=== PATIENT | female | born 2000 | race Caucasian/White ===

== ENCOUNTER 2024-04-12 21:27 | Emergency (ER) | payer MEDICAID, SELFPAY ==
[2024-04-12 21:31] VITALS: BP 150/100; PULSE 135; TEMP 36.4; O2SAT 99; BMI 26.6
[2024-04-12] MEDS: ONDANSETRON 4 MG RAPDIS TABLET SL (22:12)
[2024-04-12] MEDS: ACETAMINOPHEN 325 MG TABLET 650 MG PO (22:12)
[2024-04-12] MEDS: CEPHALEXIN 500 MG CAPSULE PO (22:12)
[2024-04-12 22:21] LABS: Influenza Virus A Antigen Negative; Influenza Virus B Antigen Negative; Internal Control Within Normal Limits
[2024-04-12] MEDS: FAMOTIDINE 20 MG TABLET PO (22:27)
--- NOTE | 2024-04-12 23:04 | ED_ITS ---
HPI HPI - General Adult General Chief complaint: Dental/Oral Stated complaint: TOOTH INFECTION Time Seen by Provider: 04/12/24 21:34 Source: patient Mode of arrival: walk-in Limitations: no limitations History of Present Illness HPI narrative: 23-year-old female to the emergency department multiple complaints. She arrives with her stepdad who encouraged her to seek medical care tonight. Patient is currently , does not know how far along. : Unknown last menstrual period. No abdominal pain or vaginal bleeding. No care thus far. Rash: Dry skin on hands. Occasional cold feeling in her feet hands and by her knees. Heartburn: Occasional heartburn. No chest pain or shortness of breath. Toothache: Left posterior superior molar pain for several weeks. Cough: Occasional cough ongoing for the last week, body aches, malaise. Related Data Previous Rx's ?Medication ?Instructions ?Recorded cephalexin 500 mg capsule 500 mg PO BID 7 days #14 caps 04/12/24 vit no.95-ferrous 1 tab PO DAILY #30 tabs 04/12/24 fumarate 28 mg-folic acid 800 mcg tablet () Allergies Allergy/AdvReac Type Severity Reaction Status Date / Time Penicillins Allergy unknown Verified 04/12/24 21:42 Opioid HPI Opioid Management Most Recent Opioid Data: No Data to Display Review of Systems ROS Status of ROS 10 or more systems reviewed and unremark able except as noted in history and below PFSH PFSH Social History Little interest or pleasure in doing things: not at all Feeling down, depressed, or hopeless: not at all Exam Narrative Exam Narrative: VITALS: I have reviewed the triage vital signs. GENERAL: Unkempt adult female in no distress NEURO: Alert and oriented. Moves all extremities. Face is symmetric and expressive. EYES: PERRL. No scleral icterus or conjunctival injection. No discharge. HENT: Normocephalic, atraumatic. Hearing is grossly intact. Nares grossly patent and without discharge. Mucous membranes moist. NECK: No JVD. Patient moves neck without restriction. CARDIO: Rhythm regular. Normal rate. No murmur, rub, or gallop. Pulses equal bilaterally in the upper and lower extremity. No lower extremity edema. PULM: Lungs clear to auscultation in all ryan. No wheezes, rales, or rhonchi. No conversational dyspnea. No splinting, stridor, or accessory muscle use. GI/: Abdomen is soft and non-tender. Normoactive bowel sounds. Gravid uterus, 20cm fundal height. EXTREMITIES: Symmetric muscle bulk. No joint swelling. No clubbing, cyanosis, or deformity. SKIN: Warm and dry. Normal turgor. No rash or lesions appreciated. PSYCH: Bizarre affect Constitutional Vital Signs, click to edit/add: Last Vital Signs Temp 97.5 F L 04/12/24 21:31 Pulse 135 H 04/12/24 21:31 Resp 16 04/12/24 21:31 BP 150/100 H 04/12/24 21:31 Pulse Ox 99 04/12/24 21:31 O2 Del Method Room Air 04/12/24 21:31 Course Vital Signs Vital signs: Vital Signs Temperature 97.5 F L 04/12/24 21:31 Pulse Rate 135 H 04/12/24 21:31 Respiratory Rate 16 04/12/24 21:31 Blood Pressure 150/100 H 04/12/24 21:31 Pulse Oximetry 99 04/12/24 21:31 Oxygen Delivery Method Room Air 04/12/24 21:31 Temperature 97.5 F L 04/12/24 21:31 Pulse Rate 135 H 04/12/24 21:31 Respiratory Rate 16 04/12/24 21:31 Blood Pressure 150/100 H 04/12/24 21:31 Pulse Oximetry 99 04/12/24 21:31 Oxygen Delivery Method Room Air 04/12/24 21:31 Medical Decision Making [facility] Narrative Medical decision making narrative: Well-appearing 23-year-old female to the emergency department multiple complaints as above, most of chronic nature. Vital stable, the patient is afebrile. Influenza testing is ordered. Symptomatic medications. 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 It sounds as though this is chronic. She also has some dry skin about her hands and feet. No dangerous rash identified. Influenza testing is negative. Her dry cough and malaise are likely viral upper respiratory given her clear lungs. Heartburn is chronic in nature. Responded well to Pepcid/Zofran in the ER. She does have generally poor dentition. Will treat dental infection with Keflex given her allergy to penicillin. Her blood pressure is mildly elevated, she reports this is chronic for her. Will defer to GROUNDING ENGINEER about treatment during as she has upcoming appointment on . Prenatals prescribed. Return precautions were discussed. All questions were answered. The patient was discharged home. Medical Records Medical records reviewed: Yes I reviewed the patient's medical records Lab Data Lab results reviewed: Yes I reviewed the patient's lab results Labs: Lab Results 04/12/24 Range/Units 21:50 Influenza Type A Ag Negative Influenza Type B Ag Negative Discharge Plan Discharge Chief Complaint: Dental/Oral Clinical Impression: Toothache, Livedo reticularis, , Viral infection Patient Disposition: Home, Self-Care Time of Disposition Decision: 22:40 Condition: Good Mode of Transportation: Private Vehicle Prescriptions / Home Meds: New cephalexin 500 mg capsule 500 mg PO BID 7 Days Qty: 14 0RF PNV cmb#95-ferrous fumarate-FA [] 28 mg iron- 800 mcg tablet 1 tab PO DAILY Qty: 30 0RF Print Language: Guamanian Instructions: (ED), Viral Syndrome (ED), Toothache (ED) Additional Instructions: Keep your appointment with the OB in [place] you mentioned. Begin taking vitamin. Discussed any medications you are taking with your GROUNDING ENGINEER. Discussed your blood pressure with your GROUNDING ENGINEER. Follow-up with a dentist. Referrals: Jose D Franz MD [Primary Care Provider] - 1 week Discharge Date/Time: 04/12/24 22:58
== END 2024-04-12 22:58 | disposition home or self-care (01) ==
PROVIDERS: Emergency Provider Student in an Organized Health Care Education/Training Program; PCP Family Medicine
DX: O99.891 Other specified diseases and conditions complicating pregnancy (principal); K08.89 Other specified disorders of teeth and supporting structures; R23.1 Pallor; O98.519 Other viral diseases complicating pregnancy, unspecified trimester; B34.9 Viral infection, unspecified; Z3A.00 Weeks of gestation of pregnancy not specified
CPT/HCPCS: 87804; 99283; Q0162